=== PATIENT | male | born 1935 | race Caucasian/White ===

== ENCOUNTER 2021-07-19 19:51 | Inpatient (IN) | payer MEDICARE ==
[~2021-07-19] VITALS: Ht 160 cm; Wt 67.0 kg
[~2021-07-19 19:51] MED LIST: AMIO200T4 PO; ASPI81CH43 PO; ATOR20TA50 PO; CLON0.1T PO; FURO20TA3 PO; GABA300C10 PO; HYDR-4833 PO; LISI20TA28 PO; POTA10TA51 PO; TICA90TA PO
[2021-07-19 23:33] LABS: Basophils # (auto) 0 10 ^3/uL (0-0.2); Eosinophils # (auto) 0 10 ^3/uL (0-0.8); Monocytes # (auto) 0.5 10 ^3/uL (0-1.3); White Blood Cell 5.7 10^3/uL (4.4-10.8)
[2021-07-19 23:35] LABS: Basophils % (auto) 0.4 % (0.0-2.0); Eosinophils % (auto) 0.8 % (0.0-7.0); Hematocrit 28.9 % (41.0-53.0); Hemoglobin 9.5 g/dL (13.5-17.5); Lymphocytes # (auto) 0.8 10 ^3/uL (0.4-5.4); Lymphocytes % (auto) 13.9 % (10.0-50.0); Mean Corpuscular Hgb Conc. 32.7 g/dL (32.0-36.0); Mean Corpuscular Volume 79.5 fL (80.0-100.0); Monocytes % (auto) 9.1 % (0.0-12.0); Neutrophils # (auto) 4.3 10 ^3/uL (1.6-8.6); Neutrophils % (auto) 75.8 % (37.0-80.0); Nucleated Red Blood Cells % 0.1 %; Red Blood Cells 3.64 10^6/uL (4.5-5.90); Red Cell Distribution Width 18.6 % (11.8-14.3)
[2021-07-19 23:50] LABS: INR 1.16 (0.9-1.15); Partial Thromboplastin Time 36.6 sec (23.6-33.0)
[2021-07-19 23:53] LABS: Albumin 2.8 g/dL (3.4-5.0); Anion Gap 10 (5-15); BUN/Creatinine Ratio 15.7; Blood Urea Nitrogen 36 mg/dL (7-18); Carbon Dioxide 25 mmol/L (21-32); Chloride 103 mmol/L (98-107); GFR African American 35 mL/min; GFR Non-African American 29 mL/min; Glucose 123 mg/dL (74-106); Magnesium 2.3 mg/dL (1.6-2.6); Potassium 4.1 mmol/L (3.5-5.1); Sodium 138 mmol/L (136-145)
[2021-07-19 23:59] LABS: Alanine Aminotransferase 12 U/L (16-61); Alkaline Phosphatase 102 U/L (45-117); Aspartate Aminotransferase 17 U/L (15-37); Bilirubin, Total 0.5 mg/dL (0.2-1.0); Total Protein 6.3 g/dL (6.4-8.2)
[2021-07-20] MEDS ORDERED: SODIUM CHLORIDE 0.9% 1,000 ML IV ONE (02:45)
[2021-07-20] MEDS ORDERED: ACETAMINOPHEN 500 MG TAB PO PRN (09:00)
[2021-07-20] MEDS ORDERED: NITROGLYCERIN 0.4 MG SL TAB SL PRN (09:00)
[2021-07-20] MEDS ORDERED: traMADol HCL 50 MG TAB PO PRN (09:00)
[2021-07-20] MEDS ORDERED: MORPHINE SULFATE INJECTION 2 MG/ML SYRG IV PRN (09:00)
[2021-07-20] MEDS ORDERED: ONDANSETRON HCL 4 MG/2 ML VIAL IV PRN (09:00)
[2021-07-20] MEDS: SODIUM CHLORIDE 0.9% 1,000 ML IV SCH ×2 (09:00→22:21)
[2021-07-20] MEDS: ATORVASTATIN 20 MG TAB PO SCH (10:00)
[2021-07-20] MEDS: PANTOPRAZOLE 40 MG TAB PO SCH (10:00)
[2021-07-20] MEDS: ASPirin 81 mg TAB PO SCH (10:00)
[2021-07-20] MEDS ORDERED: cloNIDine HCL 0.1 MG TAB PO SCH (10:00)
[2021-07-20] MEDS ORDERED: LISINOPRIL 20 MG TAB PO SCH (10:00)
[2021-07-20 13:17] LABS: Calcium 8.4 mg/dL (8.5-10.1); Potassium 3.8 mmol/L (3.5-5.1)
[2021-07-20] MEDS: GABAPENTIN 300 MG CAP PO SCH ×2 (14:00→22:21)
[2021-07-20] MEDS: HYDROcodone-ACET 5/325MG TAB PO SCH ×2 (14:00→22:25)
[2021-07-20 14:25] LABS: Magnesium 2.3 mg/dL (1.6-2.6); Phosphorus 3.7 mg/dL (2.5-4.90)
[2021-07-20] MEDS: FUROSEMIDE 20 MG TAB PO SCH (18:58)
[2021-07-20 23:00] VITALS: BP 150/67
[2021-07-21 06:02] VITALS: BP 151/64
[2021-07-21] MEDS: FUROSEMIDE 20 MG TAB PO SCH (06:06)
[2021-07-21] MEDS: GABAPENTIN 300 MG CAP PO SCH ×3 (06:06→22:23)
[2021-07-21] MEDS: HYDROcodone-ACET 5/325MG TAB PO SCH ×3 (06:06→22:24)
[2021-07-21 08:53] VITALS: BP 146/64
[2021-07-21 09:49] LABS: BUN/Creatinine Ratio 19.6; Calcium 8.4 mg/dL (8.5-10.1); Potassium 3.6 mmol/L (3.5-5.1)
[2021-07-21] MEDS: PANTOPRAZOLE 40 MG TAB PO SCH (10:36)
[2021-07-21] MEDS: ATORVASTATIN 20 MG TAB PO SCH (10:36)
[2021-07-21] MEDS: ASPirin 81 mg TAB PO SCH (10:36)
[2021-07-21 13:00] VITALS: BP 128/72
[2021-07-21 17:00] VITALS: BP 140/58
[2021-07-21 22:00] VITALS: BP 178/80
[2021-07-22 03:10] VITALS: BP 123/41
[2021-07-22 05:00] VITALS: BP 151/68
[2021-07-22 06:03] LABS: Basophils # (auto) 0 10 ^3/uL (0-0.2); Basophils % (auto) 0.5 % (0.0-2.0); Eosinophils # (auto) 0.2 10 ^3/uL (0-0.8); Eosinophils % (auto) 3.7 % (0.0-7.0); Hemoglobin 9.4 g/dL (13.5-17.5); Lymphocytes % (auto) 23.6 % (10.0-50.0); Mean Corpuscular Hemoglobin 26.8 pg (28.0-32.0); Mean Corpuscular Hgb Conc. 33.6 g/dL (32.0-36.0); Mean Corpuscular Volume 79.9 fL (80.0-100.0); Monocytes # (auto) 0.3 10 ^3/uL (0-1.3); Monocytes % (auto) 8.3 % (0.0-12.0); Neutrophils # (auto) 2.7 10 ^3/uL (1.6-8.6); Neutrophils % (auto) 63.9 % (37.0-80.0); Nucleated Red Blood Cells % 0.1 %; Red Blood Cells 3.51 10^6/uL (4.5-5.90); Red Cell Distribution Width 18.6 % (11.8-14.3); White Blood Cell 4.2 10^3/uL (4.4-10.8)
[2021-07-22 06:18] LABS: INR 1.1 (0.9-1.15)
[2021-07-22] MEDS: GABAPENTIN 300 MG CAP PO SCH ×3 (06:20→22:30)
[2021-07-22] MEDS: HYDROcodone-ACET 5/325MG TAB PO SCH (06:22)
[2021-07-22 06:23] LABS: Albumin 2.5 g/dL (3.4-5.0); BUN/Creatinine Ratio 19.7; Calcium 8.4 mg/dL (8.5-10.1); Magnesium 2.2 mg/dL (1.6-2.6); Potassium 3.8 mmol/L (3.5-5.1)
[2021-07-22 06:28] LABS: Bilirubin, Total 0.4 mg/dL (0.2-1.0); Total Protein 5.7 g/dL (6.4-8.2)
[2021-07-22 09:00] VITALS: BP 131/65
[2021-07-22] MEDS ORDERED: hydrALAZINE HCL 20 MG/ML VL IV PRN (09:00)
[2021-07-22] MEDS: ASPirin 81 mg TAB PO SCH (10:07)
[2021-07-22] MEDS: ATORVASTATIN 20 MG TAB PO SCH (10:07)
[2021-07-22] MEDS: PANTOPRAZOLE 40 MG TAB PO SCH (10:07)
[2021-07-22 13:00] VITALS: BP 147/64
[2021-07-22 17:00] VITALS: BP 157/71
[2021-07-22 22:00] VITALS: BP_SYST 132; BP_SYST 156; BP_DIAS 69; BP_DIAS 70
[2021-07-22] MEDS: HYDROcodone-ACET 5/325MG TAB PO PRN (22:36)
[2021-07-23 05:00] VITALS: BP_SYST 119; BP_SYST 157; BP_DIAS 67; BP_DIAS 73
[2021-07-23 05:41] LABS: Calcium 8.1 mg/dL (8.5-10.1); Potassium 3.8 mmol/L (3.5-5.1)
[2021-07-23] MEDS: HYDROcodone-ACET 5/325MG TAB PO PRN ×2 (05:42→21:03)
[2021-07-23] MEDS: GABAPENTIN 300 MG CAP PO SCH ×3 (05:42→21:03)
[2021-07-23 05:43] LABS: BUN/Creatinine Ratio 21.3
[2021-07-23 09:00] VITALS: BP 144/67
[2021-07-23] MEDS: ASPirin 81 mg TAB PO SCH (09:08)
[2021-07-23] MEDS: ATORVASTATIN 20 MG TAB PO SCH (09:12)
[2021-07-23] MEDS: PANTOPRAZOLE 40 MG TAB PO SCH (09:12)
[2021-07-23 13:00] VITALS: BP 152/73
[2021-07-23 15:00] VITALS: BP 129/68
[2021-07-23 22:00] VITALS: BP 154/69
[2021-07-24] VITALS (9 sets, daily range): BP systolic 131–174; BP diastolic 68–91
[2021-07-24] MEDS: GABAPENTIN 300 MG CAP PO SCH ×3 (05:42→22:55)
[2021-07-24 06:36] LABS: Urine Bacteria NONE SEEN /hpf (None Seen); Urine Blood Negative /uL (Negative); Urine Specific Gravity 1.008 (1.001-1.035); Urine WBC 1 /hpf (0 - 3)
[2021-07-24 06:57] LABS: Basophils # (auto) 0 10 ^3/uL (0-0.2); Eosinophils # (auto) 0.1 10 ^3/uL (0-0.8); Monocytes # (auto) 0.4 10 ^3/uL (0-1.3); Neutrophils # (auto) 2.6 10 ^3/uL (1.6-8.6)
[2021-07-24 07:02] LABS: Basophils % (auto) 0.5 % (0.0-2.0); Eosinophils % (auto) 2.9 % (0.0-7.0); Hematocrit 26.4 % (41.0-53.0); Lymphocytes % (auto) 23.8 % (10.0-50.0); Mean Corpuscular Hemoglobin 27.1 pg (28.0-32.0); Mean Corpuscular Volume 79.9 fL (80.0-100.0); Monocytes % (auto) 9.9 % (0.0-12.0); Neutrophils % (auto) 62.9 % (37.0-80.0); Nucleated Red Blood Cells % 0.1 %; Red Blood Cells 3.31 10^6/uL (4.5-5.90); Red Cell Distribution Width 18.3 % (11.8-14.3); White Blood Cell 4.1 10^3/uL (4.4-10.8)
[2021-07-24 07:14] LABS: INR 1.1 (0.9-1.15)
[2021-07-24 07:28] LABS: Calcium 8.5 mg/dL (8.5-10.1); Potassium 3.8 mmol/L (3.5-5.1)
[2021-07-24 07:32] LABS: BUN/Creatinine Ratio 18.7
[2021-07-24] MEDS: HYDROcodone-ACET 5/325MG TAB PO PRN ×2 (08:02→21:29)
[2021-07-24] MEDS: ASPirin 81 mg TAB PO SCH (09:02)
[2021-07-24] MEDS: ATORVASTATIN 20 MG TAB PO SCH (09:03)
[2021-07-24] MEDS: PANTOPRAZOLE 40 MG TAB PO SCH (09:03)
[2021-07-24] MEDS ORDERED: VANCOMYCIN HCL 1000 MG VL ONE (14:46)
[2021-07-24] MEDS ORDERED: fentaNYL CITRATE 100 MCG/2 ML VL ONE (14:47)
[2021-07-24] MEDS ORDERED: MIDAZOLAM HCL 2MG/2ML 2ml VIAL (1mg/ml) ONE (14:47)
[2021-07-24] MEDS ORDERED: VANCOMYCIN 1GM/250ML 250 ML IV ONE (14:47)
[2021-07-24] MEDS ORDERED: LIDOCAINE 2%HCL (LOCAL ANESTH.) INJ 20ML MDV ONE (15:04)
[2021-07-24] MEDS ORDERED: FUROSEMIDE 20 MG/2 ML VIAL ONE ×2 (15:20→15:26)
[2021-07-25] MEDS: HYDROcodone-ACET 5/325MG TAB PO PRN (03:38)
[2021-07-25] MEDS ORDERED: VANCOMYCIN 1GM/250ML 250 ML IV SCH (04:00)
[2021-07-25 05:00] VITALS: BP 156/85
[2021-07-25] MEDS: GABAPENTIN 300 MG CAP PO SCH ×2 (06:22→14:00)
[2021-07-25 06:41] LABS: Basophils # (auto) 0 10 ^3/uL (0-0.2); Basophils % (auto) 0.4 % (0.0-2.0); Eosinophils # (auto) 0.1 10 ^3/uL (0-0.8); Eosinophils % (auto) 1.8 % (0.0-7.0); Hematocrit 26.9 % (41.0-53.0); Hemoglobin 9.2 g/dL (13.5-17.5); Lymphocytes # (auto) 1.1 10 ^3/uL (0.4-5.4); Lymphocytes % (auto) 23.9 % (10.0-50.0); Mean Corpuscular Hemoglobin 27.3 pg (28.0-32.0); Mean Corpuscular Hgb Conc. 34.2 g/dL (32.0-36.0); Mean Corpuscular Volume 79.9 fL (80.0-100.0); Monocytes # (auto) 0.5 10 ^3/uL (0-1.3); Monocytes % (auto) 10.2 % (0.0-12.0); Neutrophils % (auto) 63.7 % (37.0-80.0); Red Blood Cells 3.37 10^6/uL (4.5-5.90); Red Cell Distribution Width 18.1 % (11.8-14.3); White Blood Cell 4.7 10^3/uL (4.4-10.8)
[2021-07-25 06:49] LABS: BUN/Creatinine Ratio 16.5; Calcium 8.4 mg/dL (8.5-10.1); Magnesium 2.1 mg/dL (1.6-2.6); Potassium 3.7 mmol/L (3.5-5.1)
[2021-07-25 09:00] VITALS: BP 154/80
[2021-07-25] MEDS: ASPirin 81 mg TAB PO SCH (09:39)
[2021-07-25] MEDS: ATORVASTATIN 20 MG TAB PO SCH (09:39)
[2021-07-25] MEDS ORDERED: PANTOPRAZOLE 40 MG/10 ML VIAL INJ IV ONE (10:30)
[2021-07-25] MEDS ORDERED: HYDROcodone-ACET 10/325MG TAB PO PRN (11:00)
[2021-07-25 13:00] VITALS: BP 123/94
[2021-07-25] MEDS ORDERED: HYDR-4296 PO (13:03)
[2021-07-25] MEDS ORDERED: APIX2.5T PO (13:03)
== END 2021-07-25 15:00 | disposition home health service (06) | DRG 242 ==
LOC: EDBD 19:51 → ER 19:53 → TELE 07-20 08:46 → TELE-CENTR 07-20 23:01
PROVIDERS: ADMIT Nurse Practitioner Acute Care; ATTEND Internal Medicine
PROC: 0JH606Z Insertion of Pacemaker, Dual Chamber into Chest Subcutaneous Tissue and Fascia, Open Approach (ICD-10-PCS; principal; 2021-07-24)
PROC: 02HK3JZ Insertion of Pacemaker Lead into Right Ventricle, Percutaneous Approach (ICD-10-PCS; 2021-07-24)
PROC: 02H63JZ Insertion of Pacemaker Lead into Right Atrium, Percutaneous Approach (ICD-10-PCS; 2021-07-24)
DX: I49.5 Sick sinus syndrome (principal); N17.0 Acute kidney failure with tubular necrosis; I48.0 Paroxysmal atrial fibrillation; I95.1 Orthostatic hypotension; I25.10 Atherosclerotic heart disease of native coronary artery without angina pectoris; D50.9 Iron deficiency anemia, unspecified; E78.5 Hyperlipidemia, unspecified; E88.09 Other disorders of plasma-protein metabolism, not elsewhere classified; Z20.822 Contact with and (suspected) exposure to COVID-19; N18.9 Chronic kidney disease, unspecified; I12.9 Hypertensive chronic kidney disease with stage 1 through stage 4 chronic kidney disease, or unspecified chronic kidney disease; Z79.01 Long term (current) use of anticoagulants; Z79.02 Long term (current) use of antithrombotics/antiplatelets; Z79.82 Long term (current) use of aspirin; Z79.899 Other long term (current) drug therapy; Z86.73 Personal history of transient ischemic attack (TIA), and cerebral infarction without residual deficits; Z95.5 Presence of coronary angioplasty implant and graft; Z88.1 Allergy status to other antibiotic agents; Z88.2 Allergy status to sulfonamides; Z88.8 Allergy status to other drugs, medicaments and biological substances
CPT/HCPCS: 33208; 36415; 70450; 71045; 72125; 72170; 76775; 80048; 80053; 80061; 81001; 82306; 83735; 84100; 84443; 84484; 85025; 85610; 85730; 86850; 86900; 86901; 87081; 87426; 93005; 93306; 96360; 96361; 97116; 97530; 99152; 99153; C1785; C9113; G0378; J2250

== ENCOUNTER 2021-07-27 17:23 | Inpatient (IN) | payer MEDICARE ==
[~2021-07-27] VITALS: Ht 160 cm; Wt 68.3 kg
[~2021-07-27 17:23] MED LIST changes: -AMIO200T4 PO; +APIX2.5T PO; -ASPI81CH43 PO; -CLON0.1T PO; +HYDR-4296 PO; -TICA90TA PO
[2021-07-27 18:15] LABS: Basophils # (auto) 0 10 ^3/uL (0-0.2); Basophils % (auto) 0.3 % (0.0-2.0); Eosinophils # (auto) 0.1 10 ^3/uL (0-0.8); Hemoglobin 9.5 g/dL (13.5-17.5); Monocytes # (auto) 0.6 10 ^3/uL (0-1.3)
[2021-07-27 18:16] LABS: Eosinophils % (auto) 1.9 % (0.0-7.0); Lymphocytes # (auto) 1.3 10 ^3/uL (0.4-5.4); Lymphocytes % (auto) 19.8 % (10.0-50.0); Mean Corpuscular Hemoglobin 26.4 pg (28.0-32.0); Mean Corpuscular Hgb Conc. 32.9 g/dL (32.0-36.0); Mean Corpuscular Volume 80.4 fL (80.0-100.0); Monocytes % (auto) 9.3 % (0.0-12.0); Neutrophils # (auto) 4.3 10 ^3/uL (1.6-8.6); Neutrophils % (auto) 68.7 % (37.0-80.0); Red Cell Distribution Width 18.7 % (11.8-14.3); White Blood Cell 6.3 10^3/uL (4.4-10.8)
[2021-07-27 18:17] LABS: Albumin 2.7 g/dL (3.4-5.0); Anion Gap 7 (5-15); Blood Urea Nitrogen 19 mg/dL (7-18); Calcium 8.1 mg/dL (8.5-10.1); Carbon Dioxide 24 mmol/L (21-32); Chloride 101 mmol/L (98-107); Glucose 113 mg/dL (74-106); Magnesium 2.2 mg/dL (1.6-2.6); Potassium 4.2 mmol/L (3.5-5.1); Sodium 132 mmol/L (136-145)
[2021-07-27 18:23] LABS: Alanine Aminotransferase 16 U/L (16-61); Alkaline Phosphatase 108 U/L (45-117); Aspartate Aminotransferase 18 U/L (15-37); BUN/Creatinine Ratio 16.2; Bilirubin, Total 0.7 mg/dL (0.2-1.0); GFR African American 76 mL/min; GFR Non-African American 63 mL/min; Total Protein 6.2 g/dL (6.4-8.2)
[2021-07-27 19:16] LABS: Urine Bacteria NONE SEEN /hpf (None Seen); Urine Blood Negative /uL (Negative); Urine Hyaline Cast FEW /lpf (0 - 2); Urine Specific Gravity 1.014 (1.001-1.035); Urine WBC 1 /hpf (0 - 3)
[2021-07-27] MEDS ORDERED: ONDANSETRON HCL 4 MG/2 ML VIAL IV ONE (21:30)
[2021-07-27] MEDS ORDERED: MORPHINE SULFATE INJECTION 2 MG/ML SYRG IV ONE (21:30)
[2021-07-28] VITALS (7 sets, daily range): BP systolic 137–162; BP diastolic 60–87
[2021-07-28] MEDS ORDERED: MORPHINE SULFATE INJECTION 2 MG/ML SYRG IV PRN
[2021-07-28] MEDS ORDERED: ACETAMINOPHEN 325 MG TAB PO PRN
[2021-07-28] MEDS ORDERED: NITROGLYCERIN 0.4 MG SL TAB SL PRN
[2021-07-28] MEDS ORDERED: DOCUSATE SOD 100 MG CAP PO PRN
[2021-07-28] MEDS ORDERED: ONDANSETRON HCL 4 MG/2 ML VIAL IV PRN
[2021-07-28] MEDS: MORPHINE SULFATE 4 MG/ML SYR/VIAL IV PRN ×4 (03:54→21:37)
[2021-07-28 06:09] LABS: Basophils # (auto) 0 10 ^3/uL (0-0.2); Eosinophils # (auto) 0.2 10 ^3/uL (0-0.8); Hemoglobin 8.9 g/dL (13.5-17.5); Lymphocytes # (auto) 1.1 10 ^3/uL (0.4-5.4); Neutrophils # (auto) 2.6 10 ^3/uL (1.6-8.6)
[2021-07-28 06:14] LABS: Basophils % (auto) 0.6 % (0.0-2.0); Eosinophils % (auto) 4.2 % (0.0-7.0); Lymphocytes % (auto) 23.4 % (10.0-50.0); Mean Corpuscular Hemoglobin 27.1 pg (28.0-32.0); Mean Corpuscular Hgb Conc. 34.1 g/dL (32.0-36.0); Mean Corpuscular Volume 79.6 fL (80.0-100.0); Monocytes # (auto) 0.6 10 ^3/uL (0-1.3); Monocytes % (auto) 14.1 % (0.0-12.0); Neutrophils % (auto) 57.7 % (37.0-80.0); Red Blood Cells 3.26 10^6/uL (4.5-5.90); Red Cell Distribution Width 18.4 % (11.8-14.3); White Blood Cell 4.5 10^3/uL (4.4-10.8)
[2021-07-28 06:43] LABS: Albumin 2.3 g/dL (3.4-5.0); BUN/Creatinine Ratio 17.8; Potassium 3.8 mmol/L (3.5-5.1)
[2021-07-28 06:45] LABS: Bilirubin, Total 0.7 mg/dL (0.2-1.0); Total Protein 5.6 g/dL (6.4-8.2)
[2021-07-28] MEDS: SODIUM CHLOR 0.9% PF (SALINE LOCK) 10ML VIAL/SYR IV SCH ×3 (07:06→21:37)
[2021-07-28] MEDS: ZINC SULFATE 220mg CAP or TAB PO SCH (09:29)
[2021-07-28] MEDS: FAMOTIDINE (10MG/ML) 2ML VL IV SCH (09:29)
[2021-07-28] MEDS: MULTIPLE VITAMIN TAB PO SCH (09:30)
[2021-07-28] MEDS: APIXABAN 2.5 MG TAB PO SCH ×2 (09:30→21:37)
[2021-07-28] MEDS: ASCORBIC ACID 500 MG TAB PO SCH ×2 (09:30→21:37)
[2021-07-28] MEDS ORDERED: ASPirin 81 mg TAB PO SCH (10:00)
[2021-07-28] MEDS: ATORVASTATIN 20 MG TAB PO SCH (21:37)
[2021-07-28] MEDS ORDERED: HALOPERIDOL LACTATE 5 MG/ML INJ VIAL IM PRN (23:00)
[2021-07-29] MEDS: MORPHINE SULFATE 4 MG/ML SYR/VIAL IV PRN ×6 (02:39→23:14)
[2021-07-29 04:51] LABS: Basophils # (auto) 0 10 ^3/uL (0-0.2); Basophils % (auto) 0.4 % (0.0-2.0); Eosinophils # (auto) 0.2 10 ^3/uL (0-0.8); Lymphocytes # (auto) 1.2 10 ^3/uL (0.4-5.4); Nucleated Red Blood Cells % 0.1 %
[2021-07-29 04:54] LABS: Hematocrit 27.5 % (41.0-53.0); Hemoglobin 9.2 g/dL (13.5-17.5); Lymphocytes % (auto) 26.4 % (10.0-50.0); Mean Corpuscular Hemoglobin 26.7 pg (28.0-32.0); Mean Corpuscular Hgb Conc. 33.6 g/dL (32.0-36.0); Mean Corpuscular Volume 79.4 fL (80.0-100.0); Monocytes # (auto) 0.5 10 ^3/uL (0-1.3); Monocytes % (auto) 11.2 % (0.0-12.0); Neutrophils # (auto) 2.7 10 ^3/uL (1.6-8.6); Red Blood Cells 3.47 10^6/uL (4.5-5.90); Red Cell Distribution Width 18.1 % (11.8-14.3); White Blood Cell 4.7 10^3/uL (4.4-10.8)
[2021-07-29 05:11] LABS: Calcium 8.5 mg/dL (8.5-10.1); Potassium 3.9 mmol/L (3.5-5.1)
[2021-07-29 05:25] VITALS: BP 157/78
[2021-07-29] MEDS: SODIUM CHLOR 0.9% PF (SALINE LOCK) 10ML VIAL/SYR IV SCH ×3 (07:03→22:04)
[2021-07-29 08:00] VITALS: BP 120/55
[2021-07-29 09:00] VITALS: BP 120/55
[2021-07-29] MEDS: ZINC SULFATE 220mg CAP or TAB PO SCH (09:35)
[2021-07-29] MEDS: APIXABAN 2.5 MG TAB PO SCH ×2 (09:35→22:04)
[2021-07-29] MEDS: FAMOTIDINE (10MG/ML) 2ML VL IV SCH (09:35)
[2021-07-29] MEDS: ASCORBIC ACID 500 MG TAB PO SCH ×2 (09:35→22:04)
[2021-07-29] MEDS: MULTIPLE VITAMIN TAB PO SCH (09:35)
[2021-07-29 13:00] VITALS: BP 135/71
[2021-07-29 17:00] VITALS: BP 155/95
[2021-07-29] MEDS: ATORVASTATIN 20 MG TAB PO SCH (22:03)
[2021-07-29] MEDS: HYDROcodone-ACET 5/325MG TAB PO PRN (22:03)
[2021-07-29 23:14] VITALS: BP 148/97
[2021-07-30] MEDS: HYDROcodone-ACET 5/325MG TAB PO PRN (04:15)
[2021-07-30 05:00] VITALS: BP 161/88
[2021-07-30 05:20] VITALS: BP 139/60
[2021-07-30] MEDS: SODIUM CHLOR 0.9% PF (SALINE LOCK) 10ML VIAL/SYR IV SCH ×2 (05:25→14:08)
[2021-07-30 08:00] VITALS: BP 164/81
[2021-07-30 08:40] VITALS: BP 164/81
[2021-07-30] MEDS: ASCORBIC ACID 500 MG TAB PO SCH (09:42)
[2021-07-30] MEDS: ZINC SULFATE 220mg CAP or TAB PO SCH (09:42)
[2021-07-30] MEDS: MULTIPLE VITAMIN TAB PO SCH (09:42)
[2021-07-30] MEDS: FAMOTIDINE (10MG/ML) 2ML VL IV SCH (09:42)
[2021-07-30] MEDS: MORPHINE SULFATE 4 MG/ML SYR/VIAL IV PRN (09:42)
[2021-07-30] MEDS: APIXABAN 2.5 MG TAB PO SCH (09:42)
[2021-07-30] MEDS ORDERED: hydrALAZINE HCL 25 MG TAB PO ONE (12:00)
[2021-07-30 13:00] VITALS: BP 142/81
[2021-07-30] MEDS ORDERED: THROAT LOZENGES(CEPASTAT) MT PRN (14:15)
[2021-07-30 16:28] VITALS: BP 109/90
== END 2021-07-30 19:40 | DRG 71 ==
LOC: ER 17:23 → EDBD 17:23 → TELE 23:59 → TELE-WESTW 07-28 00:45
PROVIDERS: ADMIT Nurse Practitioner Family; ATTEND Internal Medicine
DX: G93.41 Metabolic encephalopathy (principal); E87.1 Hypo-osmolality and hyponatremia; D50.9 Iron deficiency anemia, unspecified; E03.9 Hypothyroidism, unspecified; E78.5 Hyperlipidemia, unspecified; I11.0 Hypertensive heart disease with heart failure; I25.10 Atherosclerotic heart disease of native coronary artery without angina pectoris; I48.0 Paroxysmal atrial fibrillation; Z20.822 Contact with and (suspected) exposure to COVID-19; R55 Syncope and collapse; I49.5 Sick sinus syndrome; I50.9 Heart failure, unspecified; M35.00 Sjogren syndrome, unspecified; Z79.01 Long term (current) use of anticoagulants; Z79.899 Other long term (current) drug therapy; Z82.49 Family history of ischemic heart disease and other diseases of the circulatory system; I25.2 Old myocardial infarction; Z95.0 Presence of cardiac pacemaker; Z95.5 Presence of coronary angioplasty implant and graft; Z88.1 Allergy status to other antibiotic agents; Z88.2 Allergy status to sulfonamides; Z68.25 Body mass index [BMI] 25.0-25.9, adult
CPT/HCPCS: 36415; 70450; 71045; 80048; 80053; 80061; 81001; 83605; 83735; 83880; 84484; 85025; 87040; 87077; 87081; 87186; 87426; 93005; 95819; 96374; 96375; 97116; 97163; 97530; G0378; J2405; J3490

== ENCOUNTER 2021-10-14 11:22 | Emergency (ER) | payer MEDICARE ==
[~2021-10-14] VITALS: Ht 167.6 cm; Wt 68.0 kg
[2021-10-14] MEDS ORDERED: cloNIDine HCL 0.1 MG TAB PO ONE (13:30)
[2021-10-14 14:26] VITALS: BP 164/84
== END 2021-10-14 14:35 | disposition home or self-care (01) ==
LOC: EDSEX 11:22 → EDBD 11:22 → ER 11:22
DX: S61.411A Laceration without foreign body of right hand, initial encounter (principal); I10 Essential (primary) hypertension; I25.10 Atherosclerotic heart disease of native coronary artery without angina pectoris; I48.91 Unspecified atrial fibrillation; I25.2 Old myocardial infarction; K21.9 Gastro-esophageal reflux disease without esophagitis; I13.0 Hypertensive heart and chronic kidney disease with heart failure and stage 1 through stage 4 chronic kidney disease, or unspecified chronic kidney disease; N18.30 Chronic kidney disease, stage 3 unspecified; I50.9 Heart failure, unspecified; E03.9 Hypothyroidism, unspecified; Z95.0 Presence of cardiac pacemaker; Z79.899 Other long term (current) drug therapy; Z88.2 Allergy status to sulfonamides; Z88.1 Allergy status to other antibiotic agents; Z88.8 Allergy status to other drugs, medicaments and biological substances; Y04.8XXA Assault by other bodily force, initial encounter; Y93.89 Activity, other specified; Y92.89 Other specified places as the place of occurrence of the external cause; Y99.8 Other external cause status
CPT/HCPCS: 12002

== ENCOUNTER 2022-02-15 07:36 | Inpatient (IN) | payer MEDICARE ==
[2022-02-15] VITALS (8 sets, daily range): BP systolic 125–164; BP diastolic 61–74
[~2022-02-15] VITALS: Ht 160 cm; Wt 70.3 kg
[~2022-02-15 07:36] MED LIST changes: -HYDR-4296 PO
[2022-02-15] MEDS ORDERED: HYDROcodone-ACET 5/325MG TAB PO ONE (11:00)
[2022-02-15] MEDS ORDERED: HYDROcodone-ACET 5/325MG TAB ONE (11:03)
[2022-02-15] MEDS ORDERED: MIDAZOLAM HCL 2MG/2ML 2ml VIAL (1mg/ml) ONE (11:43)
[2022-02-15] MEDS ORDERED: VANCOMYCIN HCL 1000 MG VL ONE (11:43)
[2022-02-15] MEDS ORDERED: fentaNYL CITRATE 100 MCG/2 ML VL ONE (11:43)
[2022-02-15] MEDS ORDERED: VANCOMYCIN 1GM/250ML 250 ML IV ONE (11:43)
[2022-02-15] MEDS ORDERED: LIDOCAINE 2%HCL (LOCAL ANESTH.) INJ 10ml MDV ONE ×2 (11:44→12:08)
[2022-02-15] MEDS ORDERED: MORPHINE SULFATE INJECTION 2 MG/ML SYRG IV PRN (13:15)
[2022-02-15] MEDS ORDERED: NITROGLYCERIN 0.4 MG SL TAB SL PRN (13:15)
[2022-02-15] MEDS ORDERED: ACETAMINOPHEN 325 MG TAB PO PRN (14:15)
[2022-02-15] MEDS: HYDROcodone-ACET 10/325MG TAB PO PRN ×2 (16:31→21:05)
[2022-02-15] MEDS: ceFAZolin 1GM/50ML 50 ML IV SCH ×2 (17:06→22:01)
[2022-02-15] MEDS ORDERED: HYDROmorphone HCL 2 MG/ML VL ONE (18:10)
[2022-02-16] MEDS: HYDROcodone-ACET 10/325MG TAB PO PRN ×3 (03:08→16:23)
[2022-02-16 04:46] VITALS: BP 163/49
[2022-02-16] MEDS: ceFAZolin 1GM/50ML 50 ML IV SCH ×2 (05:51→13:35)
[2022-02-16 07:06] LABS: Basophils # (auto) 0 10 ^3/uL (0-0.2); Eosinophils # (auto) 0.1 10 ^3/uL (0-0.8); Hemoglobin 8.8 g/dL (13.5-17.5); Monocytes # (auto) 0.5 10 ^3/uL (0-1.3); Nucleated Red Blood Cells % 0.1 %; White Blood Cell 4.7 10^3/uL (4.4-10.8)
[2022-02-16 07:09] LABS: Basophils % (auto) 0.4 % (0.0-2.0); Eosinophils % (auto) 2.9 % (0.0-7.0); Hematocrit 26.9 % (41.0-53.0); Lymphocytes % (auto) 21.9 % (10.0-50.0); Mean Corpuscular Hgb Conc. 32.5 g/dL (32.0-36.0); Neutrophils % (auto) 64.8 % (37.0-80.0); Red Blood Cells 3.92 10^6/uL (4.5-5.90); Red Cell Distribution Width 18.5 % (11.8-14.3)
[2022-02-16 07:14] LABS: Mean Corpuscular Hemoglobin 22.3 pg (28.0-32.0); Mean Corpuscular Volume 68.7 fL (80.0-100.0)
[2022-02-16 07:32] LABS: Albumin 2.9 g/dL (3.4-5.0); BUN/Creatinine Ratio 18.4; Bilirubin, Total 0.5 mg/dL (0.2-1.0); Calcium 8.4 mg/dL (8.5-10.1); Total Protein 6.4 g/dL (6.4-8.2)
[2022-02-16 09:00] VITALS: BP 180/62
[2022-02-16 13:00] VITALS: BP 158/68
[2022-02-16 16:42] VITALS: BP 157/84
== END 2022-02-16 17:27 | disposition home or self-care (01) | DRG 254 ==
LOC: CATH 07:36 → TELE 13:11 → TELE-CENTR 15:34
PROVIDERS: ADMIT Internal Medicine Cardiovascular Disease; ATTEND Internal Medicine Cardiovascular Disease
PROC: 02PA3MZ Removal of Cardiac Lead from Heart, Percutaneous Approach (ICD-10-PCS; principal; 2022-02-15)
PROC: 05763ZZ Dilation of Left Subclavian Vein, Percutaneous Approach (ICD-10-PCS; 2022-02-15)
PROC: B5171ZZ Fluoroscopy of Left Subclavian Vein using Low Osmolar Contrast (ICD-10-PCS; 2022-02-15)
PROC: 02HK3JZ Insertion of Pacemaker Lead into Right Ventricle, Percutaneous Approach (ICD-10-PCS; 2022-02-15)
DX: T82.110A Breakdown (mechanical) of cardiac electrode, initial encounter (principal); I49.5 Sick sinus syndrome; R42 Dizziness and giddiness; Z20.822 Contact with and (suspected) exposure to COVID-19; R55 Syncope and collapse
CPT/HCPCS: 33216; 33234; 36415; 37248; 71045; 80053; 85025; 93005; 99152; 99153; G0378; J0690; J2001; J2250

== ENCOUNTER → 2022-03-02 | Outpatient (CLI) | payer MEDICARE ==
[~2022-03-02] MED LIST changes: +BACITRACIN TOP OINT 1 UD PKG TOP ONE
[2022-03-02 10:23] VITALS: BP 138/62
[2022-03-02 11:06] VITALS: BP 156/61
== END | disposition home or self-care (01) ==
LOC: CHF HDHVI 10:33
PROVIDERS: ATTEND Internal Medicine Cardiovascular Disease
DX: I50.9 Heart failure, unspecified (principal)
CPT/HCPCS: G0463

== ENCOUNTER 2022-09-12 21:00 | Inpatient (IN) | payer MEDICARE ==
[~2022-09-12] VITALS: Ht 160 cm; Wt 75.0 kg
[~2022-09-12 21:00] MED LIST changes: -BACITRACIN TOP OINT 1 UD PKG TOP ONE
[2022-09-12 22:47] LABS: Basophils # (auto) 0 10 ^3/uL (0-0.2); Basophils % (auto) 0.4 % (0.0-2.0); Eosinophils # (auto) 0.2 10 ^3/uL (0-0.8); Eosinophils % (auto) 4.1 % (0.0-7.0); Hemoglobin 10.4 g/dL (13.5-17.5); Lymphocytes # (auto) 1.2 10 ^3/uL (0.4-5.4); Mean Corpuscular Hgb Conc. 32.5 g/dL (32.0-36.0); Mean Corpuscular Volume 80.1 fL (80.0-100.0); Monocytes # (auto) 0.6 10 ^3/uL (0-1.3); Monocytes % (auto) 11.3 % (0.0-12.0); Neutrophils # (auto) 3.5 10 ^3/uL (1.6-8.6); Neutrophils % (auto) 62.2 % (37.0-80.0); Nucleated Red Blood Cells % 0.1 %; Red Cell Distribution Width 17.7 % (11.8-14.3); White Blood Cell 5.6 10^3/uL (4.4-10.8)
[2022-09-12 23:05] LABS: Urine Bacteria NONE SEEN /hpf (None Seen); Urine Blood Negative /uL (Negative); Urine Specific Gravity 1.007 (1.001-1.035); Urine WBC <1 /hpf (0 - 3)
[2022-09-12 23:09] LABS: Albumin 3.2 g/dL (3.4-5.0); BUN/Creatinine Ratio 16.3; Calcium 8.1 mg/dL (8.5-10.1); Magnesium 2.8 mg/dL (1.6-2.6); Potassium 3.9 mmol/L (3.5-5.1)
[2022-09-12 23:16] LABS: Bilirubin, Total 0.6 mg/dL (0.2-1.0); Total Protein 6.2 g/dL (6.4-8.2)
[2022-09-13] MEDS ORDERED: ACETAMINOPHEN 325 MG TAB PO ONE (00:45)
[2022-09-13] MEDS ORDERED: NITROGLYCERIN 0.4 MG SL TAB SL PRN (01:00)
[2022-09-13] MEDS ORDERED: ACETAMINOPHEN 325 MG TAB PO PRN (01:00)
[2022-09-13] MEDS ORDERED: MORPHINE SULFATE INJ 2 MG/ml SYRG IV PRN (01:00)
[2022-09-13] MEDS ORDERED: ONDANSETRON HCL 4 MG/2 ML VIAL IV PRN (01:00)
[2022-09-13] MEDS ORDERED: FUROSEMIDE 40 MG TAB PO SCH (06:00)
[2022-09-13] MEDS ORDERED: HYDROcodone-ACET 5/325MG TAB PO ONE ×2 (06:00→21:30)
[2022-09-13 09:00] VITALS: BP 147/83
[2022-09-13] MEDS ORDERED: POTA10IN6 PO (09:29)
[2022-09-13] MEDS ORDERED: MAGN241.4 PO (09:29)
[2022-09-13] MEDS ORDERED: TAMS0.4C36 PO (09:29)
[2022-09-13] MEDS ORDERED: GABA300C10 PO (09:29)
[2022-09-13] MEDS ORDERED: PYRI1TAB3 PO (09:29)
[2022-09-13] MEDS ORDERED: PANT1INJ3 PO (09:29)
[2022-09-13] MEDS ORDERED: CLON0.1T PO (09:29)
[2022-09-13] MEDS ORDERED: LORA0.5T20 PO (09:29)
[2022-09-13] MEDS ORDERED: FOLI1TAB6 PO (09:29)
[2022-09-13] MEDS ORDERED: METO25TA5 PO (09:29)
[2022-09-13] MEDS ORDERED: CYAN-17 PO (09:29)
[2022-09-13] MEDS ORDERED: ATOR10TA52 PO (09:29)
[2022-09-13] MEDS ORDERED: DIPH25CA66 PO (09:29)
[2022-09-13] MEDS ORDERED: FLUT0.05 NAS (09:29)
[2022-09-13] MEDS: APIXABAN 2.5 MG TAB PO SCH ×2 (09:59→21:09)
[2022-09-13] MEDS: METOPROLOL SUCCINATE XL 50 MG TAB PO SCH (09:59)
[2022-09-13] MEDS: PANTOPRAZOLE 40 MG TAB PO SCH (10:00)
[2022-09-13] MEDS: LISINOPRIL 20 MG TAB PO SCH (10:00)
[2022-09-13 13:00] VITALS: BP 171/81
[2022-09-13 16:38] VITALS: BP 143/76
[2022-09-13] MEDS: FUROSEMIDE 20 MG TAB PO SCH (17:31)
[2022-09-13] MEDS ORDERED: TAMSULOSIN HYDROCHLORIDE 0.4 MG CAP PO SCH (18:00)
[2022-09-13 22:00] VITALS: BP 160/90
[2022-09-13] MEDS ORDERED: ATORVASTATIN 20 MG TAB PO SCH (22:00)
[2022-09-14 05:00] VITALS: BP 157/92
[2022-09-14 06:22] LABS: Basophils # (auto) 0 10 ^3/uL (0-0.2); Basophils % (auto) 0.5 % (0.0-2.0); Eosinophils # (auto) 0.2 10 ^3/uL (0-0.8); Hemoglobin 11.3 g/dL (13.5-17.5); Mean Corpuscular Hgb Conc. 33.6 g/dL (32.0-36.0); Nucleated Red Blood Cells % 0.1 %; Red Blood Cells 4.26 10^6/uL (4.5-5.90)
[2022-09-14 06:24] LABS: Eosinophils % (auto) 3.1 % (0.0-7.0); Hematocrit 33.7 % (41.0-53.0); Lymphocytes # (auto) 1.3 10 ^3/uL (0.4-5.4); Mean Corpuscular Hemoglobin 26.5 pg (28.0-32.0); Monocytes # (auto) 0.6 10 ^3/uL (0-1.3); Monocytes % (auto) 10.9 % (0.0-12.0); Neutrophils # (auto) 3.4 10 ^3/uL (1.6-8.6); Neutrophils % (auto) 62.5 % (37.0-80.0); Red Cell Distribution Width 17.4 % (11.8-14.3); White Blood Cell 5.5 10^3/uL (4.4-10.8)
[2022-09-14] MEDS: FUROSEMIDE 20 MG TAB PO SCH (06:33)
[2022-09-14 06:50] LABS: BUN/Creatinine Ratio 14.1; Calcium 8.4 mg/dL (8.5-10.1); Potassium 3.7 mmol/L (3.5-5.1)
[2022-09-14 08:00] VITALS: BP 157/92
[2022-09-14 08:42] VITALS: BP 142/85
[2022-09-14] MEDS: LISINOPRIL 20 MG TAB PO SCH (09:35)
[2022-09-14] MEDS: PANTOPRAZOLE 40 MG TAB PO SCH (09:35)
[2022-09-14] MEDS: APIXABAN 2.5 MG TAB PO SCH (09:36)
[2022-09-14] MEDS: METOPROLOL SUCCINATE XL 50 MG TAB PO SCH (09:37)
[2022-09-14 13:02] VITALS: BP 136/81
[2022-09-14 15:53] VITALS: BP 122/80
== END 2022-09-14 16:00 | disposition home or self-care (01) | DRG 291 ==
LOC: EDBD 21:00 → ER 21:00 → TELE 09-13 01:03 → TELE-WESTW 09-13 07:54
PROVIDERS: ADMIT Nurse Practitioner; ATTEND Internal Medicine Pulmonary Disease
DX: I13.0 Hypertensive heart and chronic kidney disease with heart failure and stage 1 through stage 4 chronic kidney disease, or unspecified chronic kidney disease (principal); I50.33 Acute on chronic diastolic (congestive) heart failure; D68.59 Other primary thrombophilia; R55 Syncope and collapse; I48.91 Unspecified atrial fibrillation; I25.10 Atherosclerotic heart disease of native coronary artery without angina pectoris; N40.0 Benign prostatic hyperplasia without lower urinary tract symptoms; Z20.822 Contact with and (suspected) exposure to COVID-19; J44.9 Chronic obstructive pulmonary disease, unspecified; E78.5 Hyperlipidemia, unspecified; N18.9 Chronic kidney disease, unspecified; I45.10 Unspecified right bundle-branch block; Z82.49 Family history of ischemic heart disease and other diseases of the circulatory system; Z95.0 Presence of cardiac pacemaker; Z98.61 Coronary angioplasty status; I25.2 Old myocardial infarction; Z88.2 Allergy status to sulfonamides; Z88.8 Allergy status to other drugs, medicaments and biological substances
CPT/HCPCS: 36415; 71045; 80048; 80053; 81001; 83735; 83880; 84484; 85025; 87426; 93005; 93306; 93886; 97163; G0378